=== PATIENT | female | born 1955 | race Caucasian/White ===

== ENCOUNTER 2020-10-07 10:08 | Emergency (ER) | payer BC, MEDICARE ==
[2020-10-07] MEDS ORDERED: Ketorolac Tromethamine 30 MG/ML VIAL ONE (11:47)
[2020-10-07] MEDS ORDERED: diphenhydrAMINE 50 MG/ML VIAL ONE (11:47)
[2020-10-07] MEDS ORDERED: Metoclopramide HCl 10 MG/2 ML VIAL ONE (11:47)
[2020-10-07] MEDS ORDERED: Acetaminophen 500 MG TAB ONE (11:47)
[2020-10-07 11:49] LABS: #Basophils 0.1 thou/uL (0.0-0.2); #Eosinphils 0.2 thou/uL (0.0-0.7); #Lymphocytes 1.5 thou/uL (1.20-3.40); #Neutrophils 11.1 thou/uL (1.40-6.50); %Basophils 0.4 % (0.0-1.0); %Eosinophils 1.5 % (0.0-10.0); %Monocytes 7.1 % (0.0-10.0); Mean Corpuscular HGB CONC 30.1 g/dL (32.0-36.0); Mean Corpuscular Hemoglobin 28.7 pg (27.0-31.0); Mean Corpuscular Volume 95.5 fL (78.0-98.0); Mean Platelet Volume 6.9 fL (7.4-10.4); Platelet Count 364 thou/uL (130-400); RBC Distribution Width 16.6 % (11.5-14.5); Red Blood Cell (RBC) Count 4.17 mill/uL (4.20-5.40); White Blood Cell (WBC) Count 13.8 thou/uL (4.8-10.8)
[2020-10-07 12:11] LABS: Anion Gap 17 mmol/L (10-20); BUN (Urea Nitrogen) 16 mg/dL (9.8-20.1); Calc. Creatinine Clearance 0 mL/min (70-130); Calcium 9.8 mg/dL (7.8-10.44); Carbon Dioxide 24 mmol/L (23-31); Chloride 104 mmol/L (98-107); Glucose 160 mg/dL (80-115); Potassium 6.4 mmol/L (3.5-5.1); Sodium 139 mmol/L (136-145)
[2020-10-07 14:19] LABS: Potassium 4.7 mmol/L (3.5-5.1)
== END 2020-10-07 15:37 | disposition home or self-care (01) ==
LOC: ERS 10:08
DX: J01.90 Acute sinusitis, unspecified (principal); M06.9 Rheumatoid arthritis, unspecified; E11.9 Type 2 diabetes mellitus without complications; E78.5 Hyperlipidemia, unspecified; E27.40 Unspecified adrenocortical insufficiency; L40.9 Psoriasis, unspecified; I10 Essential (primary) hypertension; Z79.84 Long term (current) use of oral hypoglycemic drugs; Z79.52 Long term (current) use of systemic steroids; Z79.899 Other long term (current) drug therapy
CPT/HCPCS: 36415; 70450; 80048; 85025; 93005; 96365; 96375; J1200; J1885; J2765

== ENCOUNTER 2020-12-11 15:08 | Outpatient (CLI) | payer BC, MEDICARE | END 2020-12-11 15:09 | disposition home or self-care (01) | LOC: CTENTCT 15:08 | PROVIDERS: ATTEND Student in an Organized Health Care Education/Training Program | DX: J32.9 Chronic sinusitis, unspecified (principal) | CPT/HCPCS: 70486 ==

== ENCOUNTER 2021-12-15 15:55 | Inpatient (IN) | payer OTHER, BC, MEDICARE ==
[2021-12-15] MEDS ORDERED: Morphine 4 MG/ML VIAL ONE (16:16)
[2021-12-15 16:33] LABS: #Basophils 0.1 thou/uL (0.0-0.2); #Eosinphils 0.6 thou/uL (0.0-0.7); #Lymphocytes 2.8 thou/uL (1.20-3.40); #Monocytes 1.3 thou/uL (0.11-0.59); #Neutrophils 6.1 thou/uL (1.40-6.50); %Basophils 0.9 % (0.0-1.0); %Eosinophils 5.9 % (0.0-10.0); %Lymphocytes 25.3 % (21.0-51.0); %Neutrophils 55.9 % (42.0-75.0); Hemoglobin 11.7 g/dL (12.0-16.0); Mean Corpuscular HGB CONC 32.4 g/dL (32.0-36.0); Mean Corpuscular Hemoglobin 30.7 pg (27.0-31.0); Mean Platelet Volume 6.6 fL (7.4-10.4); Platelet Count 302 thou/uL (130-400)
[2021-12-15 16:51] LABS: ALT (SGPT) 18 U/L (8-55); AST (SGOT) 15 U/L (5-34); Alkaline Phosphatase 44 U/L (40-110); Anion Gap 14 mmol/L (10-20); BUN (Urea Nitrogen) 23 mg/dL (9.8-20.1); Bilirubin, Total 0.5 mg/dL (0.2-1.2); Calc. Creatinine Clearance 0 mL/min (70-130); Carbon Dioxide 22 mmol/L (23-31); Chloride 107 mmol/L (98-107); Estimated GFR 46; Globulin 3.1 g/dL (2.4-3.5); Glucose 132 mg/dL (80-115); Protein, Total 7.1 g/dL (5.8-8.1); Sodium 138 mmol/L (136-145)
[2021-12-15] MEDS ORDERED: HYDROmorphone 0.5 MG/0.5 ML SYRINGE ONE ×2 (16:51→18:01)
[2021-12-15] MEDS ORDERED: Ketorolac Tromethamine 30 MG/ML VIAL ONE (18:01)
[2021-12-15] MEDS ORDERED: hydrALAZINE 20 MG/ML VIAL SLOW IVP PRN (18:51)
[2021-12-15] MEDS ORDERED: Ondansetron PF 4 MG/2 ML Vial IVP PRN (18:51)
[2021-12-15] MEDS ORDERED: Dextrose 50% Abboject 50 ML SYRINGE SLOW IVP PRN (18:51)
[2021-12-15] MEDS ORDERED: Dextrose 5% in Water 1,000 ML IV PRN (18:51)
[2021-12-15] MEDS ORDERED: traMADol HCl 50 MG TAB PO PRN (18:56)
[2021-12-15] MEDS ORDERED: Sodium Chloride 0.9% 1,000 ML IV SCH (19:00)
[2021-12-15 20:34] VITALS: BMI 23.9
[2021-12-15] MEDS ORDERED: Famotidine 20 MG TAB PO SCH (21:00)
[2021-12-15] MEDS: Senokot S 8.6-50 MG TAB PO SCH (21:45)
[2021-12-15] MEDS: traMADol HCl 50 MG TAB PO PRN (21:49)
[2021-12-15] MEDS: Cyclobenzaprine 10 MG TAB PO PRN (23:47)
[2021-12-15] MEDS: Acetaminophen 500 MG TAB PO SCH (23:47)
[2021-12-16 01:02] LABS: SARS-CoV-2 NAA Rapid Test Not Detected (NotDetected)
[2021-12-16] MEDS: Morphine 4 MG/ML VIAL SLOW IVP PRN ×3 (04:15→17:37)
[2021-12-16] MEDS ORDERED: Sodium Chloride 0.9% 1,000 ML IV SCH (05:15)
[2021-12-16 05:57] LABS: #Basophils 0.1 thou/uL (0.0-0.2); #Eosinphils 0.6 thou/uL (0.0-0.7); #Lymphocytes 2.9 thou/uL (1.20-3.40); #Monocytes 1.4 thou/uL (0.11-0.59); #Neutrophils 6.7 thou/uL (1.40-6.50); %Basophils 0.7 % (0.0-1.0); %Eosinophils 5.1 % (0.0-10.0); %Lymphocytes 24.8 % (21.0-51.0); %Monocytes 11.8 % (0.0-10.0); %Neutrophils 57.5 % (42.0-75.0); Hemoglobin 9.7 g/dL (12.0-16.0); Mean Corpuscular Hemoglobin 30.7 pg (27.0-31.0); Mean Corpuscular Volume 95.9 fL (78.0-98.0); Mean Platelet Volume 6.9 fL (7.4-10.4); Platelet Count 254 thou/uL (130-400); RBC Distribution Width 16.9 % (11.5-14.5); Red Blood Cell (RBC) Count 3.15 mill/uL (4.20-5.40); White Blood Cell (WBC) Count 11.7 thou/uL (4.8-10.8)
[2021-12-16] MEDS: traMADol HCl 50 MG TAB PO PRN (06:14)
[2021-12-16] MEDS: Acetaminophen 500 MG TAB PO SCH (06:15)
[2021-12-16 06:25] LABS: Anion Gap 16 mmol/L (10-20); BUN (Urea Nitrogen) 22 mg/dL (9.8-20.1); Calc. Creatinine Clearance 52 mL/min (70-130); Calcium 8.8 mg/dL (7.8-10.44); Carbon Dioxide 18 mmol/L (23-31); Chloride 107 mmol/L (98-107); Estimated GFR 58; Glucose 104 mg/dL (80-115); Magnesium 1.8 mg/dL (1.6-2.6); Phosphorus 4.2 mg/dL (2.3-4.7); Potassium 3.8 mmol/L (3.5-5.1); Sodium 137 mmol/L (136-145)
[2021-12-16] MEDS ORDERED: predniSONE 5 MG TAB PO SCH (08:00)
[2021-12-16] MEDS ORDERED: Magnesium 2 GM/50 ML(in water) 2 GM in Premix Bag 1 BAG IVPB SCH (08:30)
[2021-12-16] MEDS ORDERED: Potassium Chloride 20 MEQ TAB PO SCH (08:30)
[2021-12-16] MEDS ORDERED: Famotidine 20 MG TAB PO SCH (09:00)
[2021-12-16] MEDS ORDERED: Hydrocortisone Sod Succ/PF 100 mg/2 ml Vial IVP SCH (09:30)
[2021-12-16] MEDS: Famotidine 20 MG TAB PO SCH (09:40)
[2021-12-16] MEDS: Senokot S 8.6-50 MG TAB PO SCH ×2 (09:41→21:20)
[2021-12-16] MEDS: Polyethylene Glycol 3350 17 GM Packet PO SCH (09:41)
[2021-12-16] MEDS: predniSONE 5 MG TAB PO SCH (10:54)
[2021-12-16] MEDS ORDERED: SUGAMMADEX SODIUM 200 MG/2 ML VIAL ONE (11:20)
[2021-12-16] MEDS ORDERED: fentaNYL Citrate/PF 100 MCG/2 ML SYRINGE ONE (11:20)
[2021-12-16] MEDS ORDERED: Acetaminophen 325 MG TAB PO SCH (12:00)
[2021-12-16] MEDS ORDERED: Levofloxacin 500 mg/D5W 100 ml Premix Bag ONE (12:23)
[2021-12-16] MEDS: Acetaminophen 325 MG TAB PO SCH ×3 (12:23→23:02)
[2021-12-16] MEDS ORDERED: Clindamycin/D5W 900 MG in Premix Bag 1 BAG IVPB SCH (12:30)
[2021-12-16] MEDS ORDERED: Neostigmine Methylsulfate 3 MG/3 ML SYRINGE ONE (12:42)
[2021-12-16] MEDS ORDERED: Ondansetron PF 4 MG/2 ML Vial ONE (12:42)
[2021-12-16] MEDS ORDERED: PROPOFOL 200 MG/20 ML VIAL ONE (12:42)
[2021-12-16] MEDS ORDERED: Lidocaine 1% PF 5 ML VIAL ONE (12:42)
[2021-12-16] MEDS ORDERED: Phenylephrine 10 MG/ML VIAL ONE (12:42)
[2021-12-16] MEDS ORDERED: Rocuronium Bromide 10 MG/ML (10ML VIAL) ONE (12:42)
[2021-12-16] MEDS ORDERED: Glycopyrrolate 0.2 MG/ML 5 ML SYRINGE ONE (12:42)
[2021-12-16] MEDS ORDERED: Clindamycin/D5W 900 mg/50 ml Premix Bag ONE (13:14)
[2021-12-16] MEDS ORDERED: Albumin 5% 250 ML ONE (14:26)
[2021-12-16] MEDS: Hydrocortisone Sod Succ/PF 100 mg/2 ml Vial IVP SCH ×2 (15:22→21:06)
[2021-12-16] MEDS ORDERED: Promethazine HCl 25 MG/ML VIAL IVPB PRN (15:35)
[2021-12-16] MEDS ORDERED: PACU-Morphine 4MG/ML VIAL SLOW IVP PRN (15:35)
[2021-12-16] MEDS ORDERED: Promethazine HCl 25 MG/ML VIAL IM PRN (15:35)
[2021-12-16] MEDS ORDERED: Fentanyl 100 MCG/2 ML VIAL ONE (15:38)
[2021-12-16] MEDS: Clindamycin/D5W 900 MG in Premix Bag 1 BAG IVPB SCH (21:07)
[2021-12-16] MEDS: Melatonin 3 MG TAB PO SCH (21:08)
[2021-12-16] MEDS: Pregabalin 50 MG CAP PO SCH (21:08)
[2021-12-16] MEDS: Insulin Regular 300 UNITS/3 ML VIAL SC PRN (21:09)
[2021-12-16] MEDS: Cyclobenzaprine 10 MG TAB PO PRN (23:02)
[2021-12-17] MEDS: Acetaminophen/Codeine 30-300mg Tablet PO PRN ×2 (01:46→08:50)
[2021-12-17] MEDS: Hydrocortisone Sod Succ/PF 100 mg/2 ml Vial IVP SCH (04:35)
[2021-12-17] MEDS: Clindamycin/D5W 900 MG in Premix Bag 1 BAG IVPB SCH (04:35)
[2021-12-17] MEDS: Acetaminophen 325 MG TAB PO SCH (05:40)
[2021-12-17] MEDS: Insulin Regular 300 UNITS/3 ML VIAL SC PRN (06:27)
[2021-12-17 06:59] LABS: #Lymphocytes 1.7 thou/uL (1.20-3.40); #Monocytes 1.7 thou/uL (0.11-0.59); #Neutrophils 12.3 thou/uL (1.40-6.50); %Basophils 0.1 % (0.0-1.0); %Eosinophils 0.1 % (0.0-10.0); %Lymphocytes 10.7 % (21.0-51.0); %Monocytes 10.6 % (0.0-10.0); %Neutrophils 78.6 % (42.0-75.0); Hemoglobin 5.5 g/dL (12.0-16.0); Mean Corpuscular HGB CONC 33.2 g/dL (32.0-36.0); Mean Corpuscular Hemoglobin 31.4 pg (27.0-31.0); Mean Corpuscular Volume 94.8 fL (78.0-98.0); Mean Platelet Volume 7.1 fL (7.4-10.4); Platelet Count 211 thou/uL (130-400); RBC Distribution Width 16.5 % (11.5-14.5); Red Blood Cell (RBC) Count 1.74 mill/uL (4.20-5.40); White Blood Cell (WBC) Count 15.7 thou/uL (4.8-10.8)
[2021-12-17 07:12] LABS: Anion Gap 11 mmol/L (10-20); BUN (Urea Nitrogen) 16 mg/dL (9.8-20.1); Calc. Creatinine Clearance 59 mL/min (70-130); Calcium 7.8 mg/dL (7.8-10.44); Carbon Dioxide 22 mmol/L (23-31); Chloride 105 mmol/L (98-107); Estimated GFR 68; Glucose 174 mg/dL (80-115); Phosphorus 3.3 mg/dL (2.3-4.7); Potassium 3.6 mmol/L (3.5-5.1); Sodium 134 mmol/L (136-145)
[2021-12-17] MEDS: Famotidine 20 MG TAB PO SCH (08:51)
[2021-12-17] MEDS: Senokot S 8.6-50 MG TAB PO SCH ×3 (08:51→20:25)
[2021-12-17] MEDS: DULoxetine 60 MG CAP PO SCH (08:52)
[2021-12-17] MEDS: predniSONE 5 MG TAB PO SCH (08:54)
[2021-12-17] MEDS: Pregabalin 50 MG CAP PO SCH ×2 (08:56→20:25)
[2021-12-17] MEDS: Polyethylene Glycol 3350 17 GM Packet PO SCH (08:59)
[2021-12-17] MEDS: Ferrous Sulfate 325 MG TAB PO SCH (10:13)
[2021-12-17] MEDS: Ascorbic Acid 500 mg Chewable Tablet PO SCH (10:14)
[2021-12-17] MEDS: Acetaminophen/Codeine 30-300mg Tablet PO SCH ×4 (10:14→20:26)
[2021-12-17] MEDS: Cyclobenzaprine 10 MG TAB PO PRN ×2 (10:14→18:14)
[2021-12-17] MEDS: Pilocarpine 5 MG TAB PO PRN (10:14)
[2021-12-17] MEDS: Melatonin 3 MG TAB PO SCH (20:25)
[2021-12-18] MEDS: Acetaminophen/Codeine 30-300mg Tablet PO SCH ×3 (01:39→09:38)
[2021-12-18 06:07] LABS: #Basophils 0.1 thou/uL (0.0-0.2); #Eosinphils 0.2 thou/uL (0.0-0.7); #Lymphocytes 3.5 thou/uL (1.20-3.40); #Monocytes 2.1 thou/uL (0.11-0.59); #Neutrophils 8.5 thou/uL (1.40-6.50); %Basophils 0.5 % (0.0-1.0); %Eosinophils 1.4 % (0.0-10.0); %Lymphocytes 24.3 % (21.0-51.0); %Monocytes 14.7 % (0.0-10.0); %Neutrophils 59.1 % (42.0-75.0); Mean Corpuscular HGB CONC 33.7 g/dL (32.0-36.0); Mean Corpuscular Hemoglobin 30.4 pg (27.0-31.0); Mean Corpuscular Volume 90.2 fL (78.0-98.0); Mean Platelet Volume 6.7 fL (7.4-10.4); Platelet Count 218 thou/uL (130-400); RBC Distribution Width 15.8 % (11.5-14.5); Red Blood Cell (RBC) Count 2.94 mill/uL (4.20-5.40); White Blood Cell (WBC) Count 14.3 thou/uL (4.8-10.8)
[2021-12-18 06:24] LABS: Anion Gap 10 mmol/L (10-20); BUN (Urea Nitrogen) 8 mg/dL (9.8-20.1); Calc. Creatinine Clearance 70 mL/min (70-130); Calcium 8.3 mg/dL (7.8-10.44); Carbon Dioxide 24 mmol/L (23-31); Chloride 109 mmol/L (98-107); Estimated GFR 83; Glucose 117 mg/dL (80-115); Magnesium 1.7 mg/dL (1.6-2.6); Phosphorus 2.1 mg/dL (2.3-4.7); Sodium 140 mmol/L (136-145)
[2021-12-18] MEDS ORDERED: Magnesium 2 GM/50 ML(in water) 2 GM in Premix Bag 1 BAG IVPB SCH (07:45)
[2021-12-18] MEDS ORDERED: Potassium Phosphate 30 MMOL in Sodium Chloride 0.9% 250 ML 250 ML IVPB SCH ×2 (08:00→09:00)
[2021-12-18] MEDS: Senokot S 8.6-50 MG TAB PO SCH ×2 (08:22→20:56)
[2021-12-18] MEDS: DULoxetine 60 MG CAP PO SCH (08:22)
[2021-12-18] MEDS: Polyethylene Glycol 3350 17 GM Packet PO SCH (08:22)
[2021-12-18] MEDS: predniSONE 5 MG TAB PO SCH (08:23)
[2021-12-18] MEDS: Ferrous Sulfate 325 MG TAB PO SCH (08:23)
[2021-12-18] MEDS: Pregabalin 50 MG CAP PO SCH ×2 (08:23→20:55)
[2021-12-18] MEDS: Ascorbic Acid 500 mg Chewable Tablet PO SCH (08:23)
[2021-12-18] MEDS: Famotidine 20 MG TAB PO SCH ×2 (08:24→20:56)
[2021-12-18] MEDS: Cyclobenzaprine 10 MG TAB PO PRN (09:38)
[2021-12-18] MEDS ORDERED: HYDROcodone/Acetaminophen 10/325 mg Tablet PO PRN ×2 (11:15→11:37)
[2021-12-18] MEDS ORDERED: HYDROcodone/Acetaminophen 10/325 mg Tablet PO SCH (12:00)
[2021-12-18] MEDS: Insulin Regular 300 UNITS/3 ML VIAL SC PRN ×2 (15:47→21:22)
[2021-12-18 17:33] LABS: Hemoglobin 9.4 g/dL (12.0-16.0); Mean Corpuscular HGB CONC 34.4 g/dL (32.0-36.0); Mean Platelet Volume 6.5 fL (7.4-10.4); Platelet Count 271 thou/uL (130-400); RBC Distribution Width 15.6 % (11.5-14.5); Red Blood Cell (RBC) Count 3.02 mill/uL (4.20-5.40); White Blood Cell (WBC) Count 14.9 thou/uL (4.8-10.8)
[2021-12-18] MEDS: HYDROcodone/Acetaminophen 10/325 mg Tablet PO SCH (17:35)
[2021-12-18] MEDS ORDERED: Insulin Regular 300 UNITS/3 ML VIAL SC PRN (18:04)
[2021-12-18] MEDS: Melatonin 3 MG TAB PO SCH (20:56)
[2021-12-18] MEDS ORDERED: Enoxaparin Sodium 40 MG/0.4 ML SYRINGE SC SCH (21:00)
[2021-12-19] MEDS: HYDROcodone/Acetaminophen 10/325 mg Tablet PO SCH ×3 (01:25→11:58)
[2021-12-19 05:35] LABS: #Eosinphils 0.2 thou/uL (0.0-0.7); #Lymphocytes 3.8 thou/uL (1.20-3.40); %Basophils 0.2 % (0.0-1.0); %Eosinophils 1.3 % (0.0-10.0); %Lymphocytes 27.1 % (21.0-51.0); %Monocytes 14.2 % (0.0-10.0); %Neutrophils 57.1 % (42.0-75.0); Hemoglobin 8.9 g/dL (12.0-16.0); Mean Corpuscular HGB CONC 34.1 g/dL (32.0-36.0); Mean Corpuscular Hemoglobin 30.9 pg (27.0-31.0); Mean Corpuscular Volume 90.8 fL (78.0-98.0); Mean Platelet Volume 6.8 fL (7.4-10.4); Platelet Count 275 thou/uL (130-400); RBC Distribution Width 15.8 % (11.5-14.5); Red Blood Cell (RBC) Count 2.87 mill/uL (4.20-5.40)
[2021-12-19 05:56] LABS: Anion Gap 11 mmol/L (10-20); BUN (Urea Nitrogen) 9 mg/dL (9.8-20.1); Calc. Creatinine Clearance 70 mL/min (70-130); Calcium 8.3 mg/dL (7.8-10.44); Carbon Dioxide 27 mmol/L (23-31); Chloride 103 mmol/L (98-107); Estimated GFR 83; Glucose 171 mg/dL (80-115); Magnesium 1.7 mg/dL (1.6-2.6); Phosphorus 2.2 mg/dL (2.3-4.7); Potassium 3.2 mmol/L (3.5-5.1); Sodium 138 mmol/L (136-145)
[2021-12-19] MEDS: Pilocarpine 5 MG TAB PO PRN (07:54)
[2021-12-19] MEDS: predniSONE 5 MG TAB PO SCH (08:34)
[2021-12-19] MEDS: DULoxetine 60 MG CAP PO SCH (08:38)
[2021-12-19] MEDS: Ferrous Sulfate 325 MG TAB PO SCH (08:38)
[2021-12-19] MEDS: Ascorbic Acid 500 mg Chewable Tablet PO SCH (08:38)
[2021-12-19] MEDS: Famotidine 20 MG TAB PO SCH (08:38)
[2021-12-19] MEDS: Senokot S 8.6-50 MG TAB PO SCH (08:39)
[2021-12-19] MEDS: Pregabalin 50 MG CAP PO SCH (08:39)
[2021-12-19] MEDS: Polyethylene Glycol 3350 17 GM Packet PO SCH (08:39)
[2021-12-19] MEDS ORDERED: Potassium Phosphate 30 MMOL in Sodium Chloride 0.9% 250 ML 250 ML IVPB SCH (09:00)
[2021-12-19] MEDS ORDERED: Magnesium 2 GM/50 ML(in water) 2 GM in Premix Bag 1 BAG IVPB SCH (09:00)
[2021-12-19 11:57] VITALS: BP 111/72; TEMP 98.3
[2021-12-19] MEDS ORDERED: Pilocarpine 5 MG TAB PO SCH (12:00)
== END 2021-12-19 14:46 | DRG 481 ==
LOC: ERS 15:55 → SJJU 18:51
PROVIDERS: ADMIT Surgery; ATTEND Surgery
PROC: 0QS904Z Reposition Left Femoral Shaft with Internal Fixation Device, Open Approach (ICD-10-PCS; principal; 2021-12-16)
PROC: 30233N1 Transfusion of Nonautologous Red Blood Cells into Peripheral Vein, Percutaneous Approach (ICD-10-PCS; 2021-12-17)
DX: S72.342A Displaced spiral fracture of shaft of left femur, initial encounter for closed fracture (principal); M97.02XA Periprosthetic fracture around internal prosthetic left hip joint, initial encounter; N17.9 Acute kidney failure, unspecified; D62 Acute posthemorrhagic anemia; Z20.822 Contact with and (suspected) exposure to COVID-19; E78.5 Hyperlipidemia, unspecified; I10 Essential (primary) hypertension; M06.9 Rheumatoid arthritis, unspecified; L40.9 Psoriasis, unspecified; E11.9 Type 2 diabetes mellitus without complications; M81.0 Age-related osteoporosis without current pathological fracture; Z96.643 Presence of artificial hip joint, bilateral; Z96.653 Presence of artificial knee joint, bilateral; E83.39 Other disorders of phosphorus metabolism; E87.6 Hypokalemia; W01.0XXA Fall on same level from slipping, tripping and stumbling without subsequent striking against object, initial encounter; Y92.481 Parking lot as the place of occurrence of the external cause; Z98.1 Arthrodesis status; Z79.899 Other long term (current) drug therapy; Z79.84 Long term (current) use of oral hypoglycemic drugs; Z98.890 Other specified postprocedural states
CPT/HCPCS: 27502; 36415; 36416; 36430; 71045; 76000; 80048; 80053; 83735; 84100; 85025; 86850; 86900; 86901; 94640; 96374; 96375; 96376; C1713; C1776; G0390; J1170; J1650; J1720; J1815; J1885; J1956; J2270; J2370; J2405; J2704; J3010; J3370; J3475; J3490; J7050; J7512; J7620; P9016; P9045; U0002

== ENCOUNTER 2021-12-21 20:23 | Emergency (ER) | payer BC, MEDICARE ==
[2021-12-21 21:47] LABS: #Lymphocytes 1.8 thou/uL (1.20-3.40); #Neutrophils 5.9 thou/uL (1.40-6.50); %Basophils 0.3 % (0.0-1.0); %Eosinophils 0.3 % (0.0-10.0); %Monocytes 11.7 % (0.0-10.0); %Neutrophils 66.7 % (42.0-75.0); Hemoglobin 8.9 g/dL (12.0-16.0); Mean Corpuscular HGB CONC 32.5 g/dL (32.0-36.0); Mean Corpuscular Hemoglobin 30.8 pg (27.0-31.0); Mean Corpuscular Volume 94.9 fL (78.0-98.0); Mean Platelet Volume 6.7 fL (7.4-10.4); Platelet Count 485 thou/uL (130-400); RBC Distribution Width 16.3 % (11.5-14.5); Red Blood Cell (RBC) Count 2.87 mill/uL (4.20-5.40); White Blood Cell (WBC) Count 8.8 thou/uL (4.8-10.8)
== END 2021-12-21 22:18 | disposition home or self-care (01) ==
LOC: ERS 20:23
DX: Z48.89 Encounter for other specified surgical aftercare (principal); E11.9 Type 2 diabetes mellitus without complications; I10 Essential (primary) hypertension; E78.5 Hyperlipidemia, unspecified; Z79.84 Long term (current) use of oral hypoglycemic drugs; Z79.899 Other long term (current) drug therapy
CPT/HCPCS: 36415; 99283

== ENCOUNTER 2022-07-04 00:31 | Emergency (ER) | payer BC, MEDICARE ==
[2022-07-04 01:40] LABS: #Basophils 0.1 thou/uL (0.0-0.2); #Eosinphils 0.6 thou/uL (0.0-0.7); #Lymphocytes 2.4 thou/uL (1.20-3.40); #Monocytes 1.2 thou/uL (0.11-0.59); #Neutrophils 10.4 thou/uL (1.40-6.50); %Basophils 0.6 % (0.0-1.0); %Eosinophils 3.8 % (0.0-10.0); %Lymphocytes 16.6 % (21.0-51.0); %Monocytes 8.3 % (0.0-10.0); %Neutrophils 70.7 % (42.0-75.0); Hemoglobin 11.9 g/dL (12.0-16.0); Mean Corpuscular Volume 93.6 fl (78.0-98.0); Mean Platelet Volume 6.8 fL (7.4-10.4); Platelet Count 359 10x3/uL (130-400); RBC Distribution Width 15.4 % (11.5-14.5); Red Blood Cell (RBC) Count 3.98 mill/uL (4.20-5.40); White Blood Cell (WBC) Count 14.7 10x3/uL (4.8-10.8)
[2022-07-04 02:02] LABS: ALT (SGPT) 11 U/L (8-55); AST (SGOT) 12 U/L (5-34); Albumin 3.6 g/dL (3.4-4.8); Alkaline Phosphatase 60 U/L (40-110); Anion Gap 15 mmol/L (10-20); BUN (Urea Nitrogen) 16 mg/dL (9.8-20.1); Bilirubin, Total 0.2 mg/dL (0.2-1.2); Calc. Creatinine Clearance 0 mL/min (70-130); Calcium 9.1 mg/dL (7.8-10.44); Carbon Dioxide 21 mmol/L (23-31); Chloride 104 mmol/L (98-107); Estimated GFR 75; Globulin 3.3 g/dL (2.4-3.5); Glucose 213 mg/dL (80-115); Protein, Total 6.9 g/dL (5.8-8.1); Sodium 135 mmol/L (136-145)
[2022-07-04] MEDS ORDERED: Ketorolac Tromethamine 30 MG/ML VIAL ONE (05:15)
[2022-07-04] MEDS ORDERED: Morphine 4 MG/ML VIAL ONE (05:15)
== END 2022-07-04 06:35 | disposition home or self-care (01) ==
LOC: ERS 00:31
DX: S70.02XA Contusion of left hip, initial encounter (principal); E11.9 Type 2 diabetes mellitus without complications; E78.5 Hyperlipidemia, unspecified; I10 Essential (primary) hypertension; W19.XXXA Unspecified fall, initial encounter; Y92.009 Unspecified place in unspecified non-institutional (private) residence as the place of occurrence of the external cause; Z79.84 Long term (current) use of oral hypoglycemic drugs; Z79.4 Long term (current) use of insulin
CPT/HCPCS: 36415; 72192; 80053; 85025; 93005; 96374; 96375; J1885; J2270

== ENCOUNTER 2023-06-24 13:25 | Outpatient (CLI) | payer BC, MEDICARE | END 2023-06-24 13:26 | disposition home or self-care (01) | LOC: BICMRI 13:25 | PROVIDERS: ATTEND Orthopaedic Surgery | DX: S46.011D Strain of muscle(s) and tendon(s) of the rotator cuff of right shoulder, subsequent encounter (principal); S46.811A Strain of other muscles, fascia and tendons at shoulder and upper arm level, right arm, initial encounter; M19.011 Primary osteoarthritis, right shoulder; M25.411 Effusion, right shoulder ==